=== PATIENT | male | born 1960 | race Caucasian/White ===

== ENCOUNTER 2018-01-23 01:06 | Emergency (ER) | END 2018-01-23 10:52 | disposition home or self-care (01) ==

== ENCOUNTER 2018-06-09 10:38 | Emergency (ER) | END 2018-06-09 14:28 | disposition home or self-care (01) ==

== ENCOUNTER 2018-06-11 17:32 | Emergency (ER) | END 2018-06-11 19:16 | disposition left against medical advice (07) ==

== ENCOUNTER 2018-08-09 02:57 | Inpatient (IN) | END 2018-08-13 21:30 | disposition home or self-care (01) | DRG 871 ==

== ENCOUNTER 2018-09-25 21:59 | Emergency (ER) | END 2018-09-25 22:16 | disposition left against medical advice (07) ==

== ENCOUNTER 2019-02-15 05:06 | Emergency (ER) | payer OTHER ==
[~2019-02-15] VITALS: Ht 175.3 cm; Wt 100.0 kg
[~2019-02-15 05:06] MED LIST: ALBU8.5H8 INH; CARB1TAB34 PO; DOXY100T2 PO; MUPI22OI2 TOP; PANT40TA4 PO; PRIM250T37 PO; RIVA15TA PO; TIOT18CA INHALATION
[2019-02-15 05:13] VITALS: Ht 175.3 cm; Wt 100.0 kg
--- NOTE | 2019-02-15 06:25 | ERD ---
ER Documentation Chief Complaint Chief Complaint LEONELA, from home,suprapubic cath came out, cath site bleeding HPI This is a 58-year-old male who is here because he pulled out his suprapubic catheter accident about an hour and 1/2-2 hours prior to arrival. Patient has a catheter in place because of a spasmodic bladder with urinary retention due to Parkinson's disease. He has no pain and no active bleeding ROS All systems reviewed and are negative except as per history of present illness. Medications Home Meds Active Scripts Carbidopa/Levodopa (Carbidopa-Levodopa 25-100 Tab) 1 Each Tablet, 2 TAB PO 0900,1200,1700 for 30 Days, TAB Prov:BLAIR MCGRATH NP 08/13/18 Albuterol Sulfate* (Proair HFA*) 8.5 Gm Hfa.aer.ad, 2 PUFF INH Q6 for sob, #1 INHALER Prov:BLAIR MCGRATH NP 08/13/18 Tiotropium [place]* (Spiriva*) 18 Mcg Cap.w.dev, 1 CAP INHALATION DAILY, #30 CAP Prov:BLAIR MCGRATH NP 08/13/18 Mupirocin* (Bactroban*) 2% -22 Gram Oint...g., 1 APPLIC TOP BID for 14 Days, #1 UNIT Prov:BLAIR MCGRATH NP 08/13/18 Doxycycline* (Vibramycin*) 100 Mg Tab, 100 MG PO BID for 14 Days, #28 TAB Prov:BLAIR MCGRATH NP 08/13/18 Reported Medications Primidone* (Mysoline*) 250 Mg Tablet, 250 MG PO BID, TAB 08/09/18 Rivaroxaban* (Xarelto*) 15 Mg Tablet, 15 MG PO WITH BREAKFAST DINNE, TAB 08/09/18 Pantoprazole* (Pantoprazole*) 40 Mg Tablet.dr, 40 MG PO AC BREAKFAST, TAB 08/09/18 Allergies Allergies: Coded Allergies: tramadol (Unverified Allergy, Unknown, 08/09/18) PMhx/Soc History of Surgery: Yes (CHOLYCYSTECTOMY, SUPRAPUBIC CATHETER INSERTION, L ELBOW, L WRIST, L KNEE) Anesthesia Reaction: No Hx Neurological Disorder: Yes (Parkinson) Hx Respiratory Disorders: Yes (COPD) Hx Cardiac Disorders: No Hx Psychiatric Problems: No Hx Miscellaneous Medical Probl: Yes (COPD,sleep apnea,Parkinson's disease) Hx Alcohol Use: No Hx Substance Use: No Hx Tobacco Use: No Smoking Status: Never smoker FmHx Family History: No coronary disease Physical Exam Vitals Vital Signs Date Temp Pulse Resp B/P (MAP) Pulse Ox O2 O2 Flow FiO2 Time Delivery Rate 02/15/19 98.0 64 19 135/87 96 Room Air 05:16 (103) 02/15/19 98.0 73 18 155/90 96 05:13 (111) Physical Exam Const: Well-developed, well-nourished Head: Atraumatic, normocephalic Eyes: Normal Conjunctiva, PERRLA, EOMI, normal sclera, no nystagmus ENT: Normal External Ears, Nose and Mouth, moist mucus membranes. Neck: Full range of motion. No meningismus, no lymphadenopathy. Resp: Clear to auscultation bilaterally, no wheezing, rhonchi, rales Cardio: Regular rate and rhythm, no murmurs, S1 S2 present Abd: Soft, non tender x 4, suprapubic stoma clean dry and intact non distended. Normal bowel sounds, no guarding or rebound, no pulsitile abdominal masses or bruits Skin: No petechiae or rashes, no ecchymosis , no maculopapular rash Back: No midline or flank tenderness Ext: No cyanosis, or edema, FROM x 4, normal inspection, neurovascularly intact x 4 Neur: Awake and alert, STR 5/5 x 4, sensation intact x 4, no focal findings, cerebellum intact Psych: Normal Mood and Affect Result Diagram: 02/15/1944 02/15/1944 Results 24 hrs Laboratory Tests Test 02/15/19 05:44 White Blood Count 6.0 10^3/ul Red Blood Count 4.91 10^6/ul Hemoglobin 14.5 g/dl Hematocrit 42.8 % Mean Corpuscular Volume 87.2 fl Mean Corpuscular Hemoglobin 29.5 pg Mean Corpuscular Hemoglobin Concent 33.9 g/dl Red Cell Distribution Width 13.1 % Platelet Count 281 10^3/UL Mean Platelet Volume 9.8 fl Immature Granulocytes % 0.300 % Neutrophils % 49.5 % Lymphocytes % 34.3 % Monocytes % 6.2 % Eosinophils % 9.2 % Basophils % 0.5 % Nucleated Red Blood Cells % 0.0 /100WBC Immature Granulocytes # 0.020 10^3/ul Neutrophils # 3.0 10^3/ul Lymphocytes # 2.1 10^3/ul Monocytes # 0.4 10^3/ul Eosinophils # 0.6 10^3/ul Basophils # 0.0 10^3/ul Nucleated Red Blood Cells # 0.0 10^3/ul Prothrombin Time 19.0 Sec Prothrombin Time Ratio 1.5 INR International Normalized Ratio 1.58 Sodium Level 139 mmol/L Potassium Level 4.0 mmol/L Chloride Level 108 mmol/L Carbon Dioxide Level 23 mmol/L Anion Gap 8 Blood Urea Nitrogen 16 mg/dl Creatinine 0.75 mg/dl Est Glomerular Filtrat Rate mL/min > 60 mL/min Glucose Level 120 mg/dl Calcium Level 9.2 mg/dl Procedures/MDM Dr. Rohan Cannon of urology came in to see the patient at 730 and replaced the suprapubic catheter Patient be discharged home Departure Diagnosis: Primary Impression: Complication of catheter Encounter type: initial encounter Qualified Codes: T85.9XXA - Unspecified complication of internal prosthetic device, implant and graft, initial encounter Condition: Stable KLARISSA SIMS DO Feb 15, 2019 06:25
[2019-02-15 07:59] VITALS: BP 128/78; PULSE 66; RESP 20
--- NOTE | 2019-02-15 12:59 | OPR ---
Date/Time of Note Date/Time of Note DATE: 02/15/19 TIME: 12:53 Operative Report Procedure Date: Feb 15, 2019 Preoperative Diagnosis Dislodged suprapubic tube Postoperative Diagnosis same Operation/Procedure Performed insertion of suprapubic tube Surgeon see signature line Design Chief none Anesthesia Type: other (no anesthesia) Estimated Blood Loss: none Transfusion none Specimen none Grafts/Implants none Complications none Pt Condition Post Procedure: stable Disposition: home Indications dislodged suprapubic tube ,urinary retention Procedure Description The patient was seen in the emergency room and that was after he pulled out his suprapubic tube about 3-4 hours earlier. He states that he has had the suprapubic tube for about 2 years. The suprapubic area was then prepped and draped in the usual sterile manner. Lubricating jelly was injected into the tract of the previous suprapubic tube. I used a 14 [place] catheter and with some manipulation I was able to push it through the all the tract into the bladder. The balloon was inflated with 10 mL of sterile water and the catheter connected to a leg bag. And the patient was discharged from the emergency room. He will follow-up with his primary care physician and the urologist contracted with his medical group. AIXA CARPIO MD Feb 15, 2019 12:59
== END 2019-02-15 11:56 | disposition home or self-care (01) ==
LOC: E/R 05:06
DX: T83.098A Other mechanical complication of other urinary catheter, initial encounter (principal); J44.9 Chronic obstructive pulmonary disease, unspecified; G20 Parkinson's disease; Y73.2 Prosthetic and other implants, materials and accessory gastroenterology and urology devices associated with adverse incidents
CPT/HCPCS: 36415; 51702; 80048; 85025; 85610; Z7502

== ENCOUNTER 2019-04-05 19:11 | Inpatient (IN) | payer OTHER ==
[~2019-04-05] VITALS: Ht 175.3 cm; Wt 102.4 kg
[2019-04-05] MEDS ORDERED: ALBUTEROL 0.5% (NEB) 2.5 MG/0.5 ML AMP INH STA (19:20)
[2019-04-05] MEDS ORDERED: METHYLPREDNISOLONE 125 MG INJ IV STA (19:20)
--- NOTE | 2019-04-05 23:41 | ERD ---
ER Documentation Chief Complaint Chief Complaint SOB w/ wheezes bilat upper lobes, ra sats on scene 92%, copd, HHN per ems HPI This is a 58-year-old male with a history of Parkinson's disease as well as COPD who stated that is having a COPD exacerbation. He said he was getting short of breath this afternoon gradually got worse to the point where he had to call EMS. Patient sats were in the 80s on arrival. The patient has a breathing treatment in route which helped bring his O2 sats up to 92%. Patient denied any chest pain but he has had a cough with occasional productive sputum but no fever. ROS All systems reviewed and are negative except as per history of present illness. Medications Home Meds Active Scripts Carbidopa/Levodopa (Carbidopa-Levodopa 25-100 Tab) 1 Each Tablet, 2 TAB PO 0900,1200,1700 for 30 Days, TAB Prov:BLAIR MCGRATH NP 08/13/18 Albuterol Sulfate* (Proair HFA*) 8.5 Gm Hfa.aer.ad, 2 PUFF INH Q6 for sob, #1 INHALER Prov:BLAIR MCGRATH NP 08/13/18 Tiotropium [place]* (Spiriva*) 18 Mcg Cap.w.dev, 1 CAP INHALATION DAILY, #30 CAP Prov:BLAIR MCGRATH NP 08/13/18 Mupirocin* (Bactroban*) 2% -22 Gram Oint...g., 1 APPLIC TOP BID for 14 Days, #1 UNIT Prov:BLAIR MCGRATH NP 08/13/18 Doxycycline* (Vibramycin*) 100 Mg Tab, 100 MG PO BID for 14 Days, #28 TAB Prov:BLAIR MCGRATH NP 08/13/18 Reported Medications Primidone* (Mysoline*) 250 Mg Tablet, 250 MG PO BID, TAB 08/09/18 Rivaroxaban* (Xarelto*) 15 Mg Tablet, 15 MG PO WITH BREAKFAST DINNE, TAB 08/09/18 Pantoprazole* (Pantoprazole*) 40 Mg Tablet.dr, 40 MG PO AC BREAKFAST, TAB 08/09/18 Allergies Allergies: Coded Allergies: tramadol (Unverified Allergy, Unknown, 08/09/18) PMhx/Soc History of Surgery: Yes (CHOLYCYSTECTOMY, SUPRAPUBIC CATHETER INSERTION, L E LBOW, L WRIST, L KNEE) Anesthesia Reaction: No Hx Neurological Disorder: Yes (Parkinson) Hx Respiratory Disorders: Yes (COPD) Hx Cardiac Disorders: No Hx Psychiatric Problems: No Hx Miscellaneous Medical Probl: Yes (COPD,sleep apnea,Parkinson's disease) Hx Alcohol Use: No Hx Substance Use: No Hx Tobacco Use: No Smoking Status: Never smoker FmHx Family History: No coronary disease Physical Exam Vitals Vital Signs Date Temp Pulse Resp B/P (MAP) Pulse Ox O2 O2 Flow FiO2 Time Delivery Rate 04/05/19 105 19 137/83 98 Nasal 4.0 21:57 (101) Cannula 04/05/19 110 23 114/60 96 Nasal 3.0 20:40 (78) Cannula 04/05/19 97 2.0 20:10 04/05/19 106 22 96 Nasal 2.0 19:48 Cannula 04/05/19 Nasal 3 19:24 Cannula 04/05/19 98.8 116 26 150/90 98 19:13 (110) Physical Exam Const: Well-developed, well-nourished Head: Atraumatic, normocephalic Eyes: Normal Conjunctiva, PERRLA, EOMI, normal sclera, no nystagmus ENT: Normal External Ears, Nose and Mouth, moist mucus membranes. Neck: Full range of motion. No meningismus, no lymphadenopathy. Resp: [Lateral diffuse wheezes with distant breath sounds with increased work of breathing Cardio: Regular rate and rhythm, no murmurs, S1 S2 present Abd: Soft, non tender x 4, non distended. Normal bowel sounds, no guarding or rebound, no pulsitile abdominal masses or bruits Skin: No petechiae or rashes, no ecchymosis , no maculopapular rash Back: No midline or flank tenderness Ext: No cyanosis, or edema, FROM x 4, normal inspection, neurovascularly intact x 4 Neur: Awake and alert, STR 5/5 x 4, sensation intact x 4, no focal findings, cerebellum intact Psych: Normal Mood and Affect Result Diagram: 04/05/19191204/05/191912 Results 24 hrs Laboratory Tests Test 04/05/19 19:13 White Blood Count 10.3 10^3/ul Red Blood Count 5.19 10^6/ul Hemoglobin 16.2 g/dl Hematocrit 46.1 % Mean Corpuscular Volume 88.8 fl Mean Corpuscular Hemoglobin 31.2 pg Mean Corpuscular Hemoglobin Concent 35.1 g/dl Red Cell Distribution Width 12.9 % Platelet Count 308 10^3/UL Mean Platelet Volume 10.0 fl Immature Granulocytes % 0.300 % Neutrophils % 49.7 % Lymphocytes % 41.1 % Monocytes % 4.9 % Eosinophils % 3.5 % Basophils % 0.5 % Nucleated Red Blood Cells % 0.0 /100WBC Immature Granulocytes # 0.030 10^3/ul Neutrophils # 5.1 10^3/ul Lymphocytes # 4.2 10^3/ul Monocytes # 0.5 10^3/ul Eosinophils # 0.4 10^3/ul Basophils # 0.1 10^3/ul Nucleated Red Blood Cells # 0.0 10^3/ul Sodium Level 141 mmol/L Potassium Level 3.9 mmol/L Chloride Level 106 mmol/L Carbon Dioxide Level 23 mmol/L Anion Gap 12 Blood Urea Nitrogen 17 mg/dl Creatinine 1.03 mg/dl Est Glomerular Filtrat Rate mL/min > 60 mL/min Glucose Level 120 mg/dl Calcium Level 9.2 mg/dl Total Bilirubin 0.3 mg/dl Direct Bilirubin 0.00 mg/dl Indirect Bilirubin 0.3 mg/dl Aspartate Amino Transf (AST/SGOT) 56 IU/L Alanine Aminotransferase (ALT/SGPT) 59 IU/L Alkaline Phosphatase 96 IU/L Troponin I < 0.012 ng/ml Total Protein 8.5 g/dl Albumin 4.5 g/dl Globulin 4.00 g/dl Albumin/Globulin Ratio 1.12 Current Medications Medications Dose Sig/Valeria Start Time Status Last (Trade) Ordered Route PRN Stop Time Admin Dose Reason Admin Albuterol 10 mg ONCE STAT 04/05/19 DC 04/05/19 (Proventil INH 19:20 04/05/19 19:47 0.5% (Neb)) 19:22 125 mg ONCE STAT 04/05/19 DC 04/05/19 Methylprednis IV 19:20 04/05/19 19:28 olone Sodium 19:22 Succinate (Solu-Medrol) Procedures/[place] [id number] Radiology Main Line: [phone] DIAGNOSTIC IMAGING REPORT Patient: VAUGHN QUESADA : 1960 Age: 58 Sex: M MR #: [id number] DOS: 04/05/191919 Ordering MD: KLARISSA SIMS DO Location: E/R Room/Bed: PROCEDURE: XR Chest. CLINICAL INDICATION: SOB TECHNIQUE: Single frontal view of the chest COMPARISON: 08/12/2018 FINDINGS: Mild pulmonary vascular congestion. No focal consolidation. The heart and mediastinum are within normal limits. There is no pleural effusion or pneumothorax. Bones and soft tissues are unremarkable. IMPRESSION: Mild pulmonary vascular congestion. Otherwise, no acute cardiac or pulmonary findings. RPTAT:HCLE sangita Taveras, Physician Date Time Electronically viewed and signed by sangita Taveras Physician on 04/05/2019 20:05 cE/ CC: KLARISSA SIMS DO [id number] After breathing treatments for 1 hour and steroids. Patient is having a lot of coughing and coughing of yellow sputum. After several hours of observation his sats are still in the low 90s on oxygen, he saying that he still not at baseline and feels like he needs to be admitted Departure Diagnosis: Primary Impression: COPD exacerbation Condition: Stable KLARISSA SIMS DO Apr 05, 2019 23:41
[2019-04-06] VITALS (12 sets, daily range): BP systolic 117–144; BP diastolic 61–81; PULSE 81–90; RESP 16–22; Ht 175.3 cm; Wt 102.4 kg
[2019-04-06] MEDS ORDERED: AL HYDROX/MG HYDROX/SIMETH 30 ML CUP PO ONE (01:30)
[2019-04-06] MEDS ORDERED: HYDROCODONE/APAP (5/325) TAB PO PRN (02:00)
[2019-04-06] MEDS ORDERED: ONDANSETRON 4 MG INJ IV PRN ×2 (02:00)
[2019-04-06] MEDS ORDERED: morphine 2 MG INJ IV PRN (02:00)
[2019-04-06] MEDS ORDERED: DOCUSATE SODIUM 100 MG CAP PO PRN (02:00)
[2019-04-06] MEDS ORDERED: ACETAMINOPHEN 325 MG TAB PO PRN ×2 (02:00)
[2019-04-06] MEDS ORDERED: NACL 0.9% 3 ML SYG IV SCH (02:00)
[2019-04-06] MEDS ORDERED: LIDOCAINE 2% VISC 15 ML CUP PO ONE (02:30)
--- NOTE | 2019-04-06 04:47 | HP ---
Date/Time of Note Date/Time of Note DATE: 04/06/19 TIME: 04:47 Assessment/Plan VTE Prophylaxis SCD applied (from Nsg): No SCD contraindicated: other Pharmacological prophylaxis: rivaroxaban Lines/Catheters IV Catheter Type (from Nrsg): Saline Lock Urinary Cath still in place: No (SUPRA PUBIC CATH) Assessment/Plan Hospital Course Assessment and plan: 58-year-old male with past medical history of Parkinson's disease, neurogenic bladder with suprapubic catheter in place, DVT on Xarelto, prior UTI, prior pneumonia, COPD who presents with shortness of breath secondary to COPD exacerbation 1. COPD exacerbation: Patient again presents with shortness of breath -Add breathing treatments every 4 hours [id number], IV steroids Solu- Medrol, and low-dose IV antibiotics -Continue supplementation oxygen as needed, follow-up TSH, A1c, lipid panel -If symptoms worsen consider pulmonary consult, obtain PT consult for now 2. History of Parkinson's disease: Continue current Sinemet medications, monitor 3. History of neurogenic bladder: Again patient has a history of suprapubic catheter in place -Monitor for now 4. History of prior DVT: Continue Xarelto Result Diagram: 04/05/19191204/05/191912 Results 24hrs Laboratory Tests Test 04/05/19 19:13 White Blood Count 10.3 # Red Blood Count 5.19 Hemoglobin 16.2 Hematocrit 46.1 Mean Corpuscular Volume 88.8 Mean Corpuscular Hemoglobin 31.2 Mean Corpuscular Hemoglobin Concent 35.1 Red Cell Distribution Width 12.9 Platelet Count 308 Mean Platelet Volume 10.0 Immature Granulocytes % 0.300 Neutrophils % 49.7 Lymphocytes % 41.1 Monocytes % 4.9 Eosinophils % 3.5 Basophils % 0.5 Nucleated Red Blood Cells % 0.0 Immature Granulocytes # 0.030 Neutrophils # 5.1 Lymphocytes # 4.2 H Monocytes # 0.5 Eosinophils # 0.4 Basophils # 0.1 Nucleated Red Blood Cells # 0.0 Sodium Level 141 Potassium Level 3.9 Chloride Level 106 Carbon Dioxide Level 23 Anion Gap 12 Blood Urea Nitrogen 17 Creatinine 1.03 Est Glomerular Filtrat Rate mL/min > 60 Glucose Level 120 Calcium Level 9.2 Total Bilirubin 0.3 Direct Bilirubin 0.00 Indirect Bilirubin 0.3 Aspartate Amino Transf (AST/SGOT) 56 H Alanine Aminotransferase (ALT/SGPT) 59 Alkaline Phosphatase 96 Troponin I < 0.012 B-Type Natriuretic Peptide 29 Total Protein 8.5 H Albumin 4.5 Globulin 4.00 H Albumin/Globulin Ratio 1.12 HPI/ROS Admit Date/Time Admit Date/Time Apr 05, 2019 at 23:42 Hx of Present Illness 58-year-old male with past medical history of Parkinson's disease, neurogenic bladder with suprapubic catheter in place, DVT on Xarelto, prior UTI, prior pneumonia, COPD who presents with shortness of breath. Patient stated he was getting short of breath yesterday afternoon which gradually got worse to the point where EMS was called. Upon arrival they found patient's sats in the 80s. Patient received 1 breathing treatment in route which helped bring his O2 sats up to 92%. Denies any upper or lower GI bleeding, fever chills, nausea vomiting, chest pain but he has had a cough with occasional productive sputum. His chest ray on admission today showed mild pulmonary vascular congestion. PMH/Family/Social Past Medical History Medications Current Medications Ondansetron HCl (Zofran Inj) 4 mg ER BRIDGE PRN IV NAUSEA/VOMITING; Start 04/06/19 at 00:00; Stop 04/06/19 at 23:59 Acetaminophen (Tylenol Tab) 650 mg ER BRIDGE PRN PO .MILD PAIN 1-3 OR TEMP; Start 04/06/19 at 00:00; Stop 04/06/19 at 23:59 Carbidopa/Levodopa (Sinemet (25/ 100)) 2 tab 0900,1200,1700 PO ; Start 04/06/19 at 09:00 Mupirocin (Bactroban) 1 applic BID TOP ; Start 04/06/19 at 09:00 Pantoprazole (Protonix Tab) 40 mg AC BREAKFAST PO ; Start 04/06/19 at 07:00 Primidone (Mysoline) 250 mg BID PO ; Start 04/06/19 at 09:00 Rivaroxaban (Xarelto) 15 mg WITH BREAKFAST DINNE PO ; Start 04/06/19 at 07:55 IV Flush (NS 3 ml) 3 ml PER PROTOCOL IV ; Start 04/06/19 at 02:00 Ondansetron HCl (Zofran Inj) 4 mg Q6H PRN IV NAUSEA/VOMITING; Start 04/06/19 at 02:00 Acetaminophen (Tylenol Tab) 650 mg Q6H PRN PO .PAIN 1-3 OR TEMP; Start 04/06/19 at 02:00 Acetaminophen/ Hydrocodone Bitart ([place] (5/325)) 1 tab Q6H PRN PO .MOD PAIN 4- 6; Start 04/06/19 at 02:00 Morphine Sulfate (morphine) 2 mg Q4H PRN IV .SEVERE PAIN 7-10; Start 04/06/19 at 02:00 Docusate Sodium (Colace) 100 mg Q12H PRN PO .CONSTIPATION; Start 04/06/19 at 02:00 Magnesium Hydroxide (Milk Of Mag) 30 ml DAILY PRN PO .CONSTIPATION; Start 04/06/19 at 02:00 Heparin Sodium (Porcine) (Heparin (5000 Units/1ml)) 5,000 unit Q12 SC ; Start 04/06/19 at 09:00 Methylprednisolone Sodium Succinate (Solu-Medrol) 80 mg Q6 IV ; Start 04/06/19 at 06:00 Coded Allergies: baclofen (Verified Allergy, Severe, RASH BIG BUMP, 04/06/19) tramadol (Unverified Allergy, Unknown, 08/09/18) Past Surgical History Past Surgical Hx: other (CHOLYCYSTECTOMY, SUPRAPUBIC CATHETER INSERTION, L ELBOW, L WRIST, L KNEE) Family History Significant Family History: no pertinent family hx Social History Alcohol Use: none Smoking Status: Former smoker Drug Use: none Exam/Review of Systems Vital Signs Vitals Vital Signs Date Temp Pulse Resp B/P (MAP) Pulse Ox O2 O2 Flow FiO2 Time Delivery Rate 04/06/19 Nasal 4.0 03:30 Cannula 04/06/19 97.8 81 22 131/81 93 03:14 (98) Intake and Output 04/05/19 04/05/19 04/06/19 1515:00 23:00 07:00 IntakeIntake Total 60 ml BalanceBalance 60 ml Exam Exam Gen: Lying in bed, NAD Head: Atraumatic. Eyes: Normal Conjunctiva. ENT: Normal External Ears, Nose and Mouth. Neck: Full range of motion. No meningismus. Resp: Lateral diffuse wheezes with distant breath sounds with increased work of breathing Cardio: Regular rate and rhythm. Abd: Soft, nondistended, normal bowel sounds, non tender. Ext: No lower extremity edema bilaterally Neuro: No focal deficits RAHI,ASHLEY S. Apr 06, 2019 04:47
[2019-04-06] MEDS ORDERED: LEVOFLOXACIN 750MG/D5W (PMX) 150 ML IVPB SCH (05:30)
[2019-04-06] MEDS: METHYLPREDNISOLONE 125 MG INJ IV SCH ×3 (05:41→17:11)
[2019-04-06] MEDS: PRIMIDONE 250 MG TAB PO SCH ×2 (08:08→20:05)
[2019-04-06] MEDS: PANTOPRAZOLE (EC) 40 MG TAB PO SCH (08:08)
[2019-04-06] MEDS: CARBIDOPA/LEVODOPA (25/100) TAB PO SCH ×3 (08:08→17:11)
[2019-04-06] MEDS: RIVAROXABAN 15 MG TABLET PO SCH ×2 (08:08→17:11)
[2019-04-06] MEDS: MUPIROCIN 2% 22 GM OINT TOP SCH ×2 (08:09→20:06)
[2019-04-06] MEDS ORDERED: HEPARIN 5,000 UNIT/1 ML VIAL SC SCH (09:00)
--- NOTE | 2019-04-06 18:37 | PN ---
Date/Time of Note Date/Time of Note DATE: 04/06/19 TIME: 18:35 Assessment/Plan VTE Prophylaxis Risk score (from Nsg)>0 risk: 5 SCD applied (from Ns): No SCD contraindicated: low risk/ambulating Pharmacological prophylaxis: LMWH Lines/Catheters IV Catheter Type (from Nrs): Saline Lock Urinary Cath still in place: No (SUPRA PUBIC CATHETER) Assessment/Plan Hospital Course Hospitalist coverage Assessment and plan 1. Dyspnea likely acute COPD exacerbation, stable continue steroids/aerosols. 2. Viral bronchitis? 3. Past tobacco 4. Chronic COPD consider outpatient PFTs 5. Chronic parkinsonism 6. Chronic neurogenic bladder 7. History of DVT 8. Acute hypoxic respiratory failure. Chronic respiratory failure? 9. Obesity Subjective: Dyspnea remains. No fever. Objective: Vital signs stable Physical exam No pallor adenopathy JVD Regular no murmur gallop Diminished Bowel sounds present nontender nausea no RRG overweight No edema/Homans Result Diagram: 04/05/19191204/05/191912 Results 24hrs Laboratory Tests Test 04/05/19 19:13 04/06/19 13:40 White Blood Count 10.3 # Red Blood Count 5.19 Hemoglobin 16.2 Hematocrit 46.1 Mean Corpuscular Volume 88.8 Mean Corpuscular Hemoglobin 31.2 Mean Corpuscular Hemoglobin Concent 35.1 Red Cell Distribution Width 12.9 Platelet Count 308 Mean Platelet Volume 10.0 Immature Granulocytes % 0.300 Neutrophils % 49.7 Lymphocytes % 41.1 Monocytes % 4.9 Eosinophils % 3.5 Basophils % 0.5 Nucleated Red Blood Cells % 0.0 Immature Granulocytes # 0.030 Neutrophils # 5.1 Lymphocytes # 4.2 H Monocytes # 0.5 Eosinophils # 0.4 Basophils # 0.1 Nucleated Red Blood Cells # 0.0 Sodium Level 141 Potassium Level 3.9 Chloride Level 106 Carbon Dioxide Level 23 Anion Gap 12 Blood Urea Nitrogen 17 Creatinine 1.03 Est Glomerular Filtrat Rate mL/min > 60 Glucose Level 120 Calcium Level 9.2 Total Bilirubin 0.3 Direct Bilirubin 0.00 Indirect Bilirubin 0.3 Aspartate Amino Transf (AST/SGOT) 56 H Alanine Aminotransferase (ALT/SGPT) 59 Alkaline Phosphatase 96 Troponin I < 0.012 B-Type Natriuretic Peptide 29 Total Protein 8.5 H Albumin 4.5 Globulin 4.00 H Albumin/Globulin Ratio 1.12 Urine Color YELLOW Urine Clarity CLEAR Urine pH 8.0 Urine Specific [place] 1.033 H Urine Ketones TRACE A Urine Nitrite NEGATIVE Urine Bilirubin NEGATIVE Urine Urobilinogen NEGATIVE Urine Leukocyte Esterase TRACE A Urine Microscopic RBC 2 Urine Microscopic WBC 10 H Urine Hemoglobin NEGATIVE Urine Glucose NEGATIVE Urine Total Protein NEGATIVE Exam/Review of Systems Exam Vitals Vital Signs Date Temp Pulse Resp B/P (MAP) Pulse Ox O2 O2 Flow FiO2 Time Delivery Rate 04/06/19 82 16:03 04/06/19 98.0 16 119/65 96 15:24 (83) 04/06/19 Nasal 4.0 08:00 Cannula Intake and Output 04/05/19 04/05/19 04/06/19 1515:00 23:00 07:00 IntakeIntake Total 210 ml OutputOutput Total 100 ml BalanceBalance 110 ml Results Results 24hrs Laboratory Tests Test 04/05/19 19:13 04/06/19 13:40 White Blood Count 10.3 # Red Blood Count 5.19 Hemoglobin 16.2 Hematocrit 46.1 Mean Corpuscular Volume 88.8 Mean Corpuscular Hemoglobin 31.2 Mean Corpuscular Hemoglobin Concent 35.1 Red Cell Distribution Width 12.9 Platelet Count 308 Mean Platelet Volume 10.0 Immature Granulocytes % 0.300 Neutrophils % 49.7 Lymphocytes % 41.1 Monocytes % 4.9 Eosinophils % 3.5 Basophils % 0.5 Nucleated Red Blood Cells % 0.0 Immature Granulocytes # 0.030 Neutrophils # 5.1 Lymphocytes # 4.2 H Monocytes # 0.5 Eosinophils # 0.4 Basophils # 0.1 Nucleated Red Blood Cells # 0.0 Sodium Level 141 Potassium Level 3.9 Chloride Level 106 Carbon Dioxide Level 23 Anion Gap 12 Blood Urea Nitrogen 17 Creatinine 1.03 Est Glomerular Filtrat Rate mL/min > 60 Glucose Level 120 Calcium Level 9.2 Total Bilirubin 0.3 Direct Bilirubin 0.00 Indirect Bilirubin 0.3 Aspartate Amino Transf (AST/SGOT) 56 H Alanine Aminotransferase (ALT/SGPT) 59 Alkaline Phosphatase 96 Troponin I < 0.012 B-Type Natriuretic Peptide 29 Total Protein 8.5 H Albumin 4.5 Globulin 4.00 H Albumin/Globulin Ratio 1.12 Urine Color YELLOW Urine Clarity CLEAR Urine pH 8.0 Urine Specific [place] 1.033 H Urine Ketones TRACE A Urine Nitrite NEGATIVE Urine Bilirubin NEGATIVE Urine Urobilinogen NEGATIVE Urine Leukocyte Esterase TRACE A Urine Microscopic RBC 2 Urine Microscopic WBC 10 H Urine Hemoglobin NEGATIVE Urine Glucose NEGATIVE Urine Total Protein NEGATIVE Medications Medication Current Medications Carbidopa/Levodopa (Sinemet (25/ 100)) 2 tab 0900,1200,1700 PO Last administered on 04/06/19at 17:11; Admin Dose 2 TAB; Start 04/06/19 at 09:00 Mupirocin (Bactroban) 1 applic BID TOP Last administered on 04/06/19at 08:09; Admin Dose 1 APPLIC; Start 04/06/19 at 09:00 Pantoprazole (Protonix Tab) 40 mg AC BREAKFAST PO Last administered on 04/06/19 08:08; Admin Dose 40 MG; Start 04/06/19 at 07:00 Primidone (Mysoline) 250 mg BID PO Last administered on 04/06/19 08:08; Admin Dose 250 MG; Start 04/06/19 at 09:00 Rivaroxaban (Xarelto) 15 mg WITH BREAKFAST DINNE PO Last administered on 04/06/19at 17:11; Admin Dose 15 MG; Start 04/06/19 at 07:55 IV Flush (NS 3 ml) 3 ml PER PROTOCOL IV ; Start 04/06/19 at 02:00 Ondansetron HCl (Zofran Inj) 4 mg Q6H PRN IV NAUSEA/VOMITING; Start 04/06/19 at 02:00 Acetaminophen (Tylenol Tab) 650 mg Q6H PRN PO .PAIN 1-3 OR TEMP; Start 04/06/19 at 02:00 Acetaminophen/ Hydrocodone Bitart ([place] (5/325)) 1 tab Q6H PRN PO .MOD PAIN 4- 6 Last administered on 04/06/19at 08:43; Admin Dose 1 TAB; Start 04/06/19 at 02:00 Morphine Sulfate (morphine) 2 mg Q4H PRN IV .SEVERE PAIN 7-10; Start 04/06/19 at 02:00 Docusate Sodium (Colace) 100 mg Q12H PRN PO .CONSTIPATION; Start 04/06/19 at 02:00 Magnesium Hydroxide (Milk Of Mag) 30 ml DAILY PRN PO .CONSTIPATION; Start 04/06/19 at 02:00 Methylprednisolone Sodium Succinate (Solu-Medrol) 80 mg Q6 IV Last administered on 04/06/19at 17:11; Admin Dose 80 MG; Start 04/06/19 at 06:00 Levofloxacin/ Dextrose 150 ml @ 100 mls/hr Q24H IVPB Last administered on 04/06/19at 05:41; Admin Dose 100 MLS/HR; Start 04/06/19 at 05:30 KELSEY COSTELLO MD Apr 06, 2019 18:37
[2019-04-06] MEDS ORDERED: MAGNESIUM SULFATE 2 GM/50 ML 50 ML IVPB ONE (19:00)
[2019-04-06] MEDS ORDERED: GUAIFENESIN/DM 5ML CUP PO PRN (19:00)
[2019-04-06] MEDS ORDERED: ALBUTEROL/IPRATROPIUM (NEB) 3 ML AMP HHN PRN (19:00)
[2019-04-06] MEDS: ALBUTEROL/IPRATROPIUM (NEB) 3 ML AMP HHN SCH ×2 (20:00→20:19)
[2019-04-06] MEDS ORDERED: METHYLPREDNISOLONE 4 MG TAB PO SCH (20:30)
[2019-04-07] VITALS (9 sets, daily range): BP systolic 108–117; BP diastolic 56–74; PULSE 66–100; RESP 16–20
[2019-04-07] MEDS: MAGNESIUM HYDROXIDE 30ML CUP PO PRN (00:53)
[2019-04-07] MEDS: PANTOPRAZOLE (EC) 40 MG TAB PO SCH (07:25)
[2019-04-07] MEDS: ALBUTEROL/IPRATROPIUM (NEB) 3 ML AMP HHN SCH ×3 (07:59→20:34)
[2019-04-07] MEDS: METHYLPREDNISOLONE 4 MG TAB PO SCH ×2 (08:13→12:00)
[2019-04-07] MEDS: LOSARTAN 25 MG TAB PO SCH (08:13)
[2019-04-07] MEDS: MUPIROCIN 2% 22 GM OINT TOP SCH ×2 (08:14→22:57)
[2019-04-07] MEDS: PRIMIDONE 250 MG TAB PO SCH ×2 (08:14→21:34)
[2019-04-07] MEDS: AZITHROMYCIN 250 MG TAB PO SCH (08:14)
[2019-04-07] MEDS: RIVAROXABAN 15 MG TABLET PO SCH ×2 (08:14→18:13)
[2019-04-07] MEDS: CARBIDOPA/LEVODOPA (25/100) TAB PO SCH ×3 (08:14→18:03)
[2019-04-07] MEDS ORDERED: METHYLPREDNISOLONE (MEDROL) DOSE PACK PO SCH (09:00)
--- NOTE | 2019-04-07 14:18 | RADRPT ---
Echocardiogram Report Patient Name: VAUGHN QUESADAPatient ID: [id number] : 1960 (58y 6m)Study Date: 04/07/2019 7:16:56 AM Gender: MAccession #: [id number] Tech: Sky Manriquez RDCS Location: [id number] Ref.Physician: KELSEY COSTELLO Height(Cm): BSA: Weight(Kg): Quality: AdequateOrder Physician: KELSEY COSTELLO Account #: Procedures: Echocardiographic Report: Transthoracic echocardiogram with complete 2D, M-Mode, and doppler examination. Indications: Dyspnea. Measurements: 2D/M Mode Doppler Measurement Value Normal Range Measurement Value Normal Range LVIDd 2D 4.8 [ 4.2 - 5.8 ] cm AV Peak Joseph 1.3 [ 100.0 - 170.0 ] cm/sec LVIDs 2D 2.4 [ 2.5 - 4.0 ] cm AV Peak PG 7.0 [ 2.0 - 9.0 ] mmHg LVPWd 2D 1.1 [ 0.6 - 1.0 ] cm LVOT Peak Joseph 1.1 [ 70.0 - 110.0 ] cm/sec IVSd 2D 1.0 [ 0.6 - 1.0 ] cm LVOT Peak PG 5.0 [ 2.0 - 6.0 ] mmHg AoR Diam 2D 3.6 [ 2.6 - 3.4 ] cm MV E Peak Joseph 0.7 [ 60.0 - 130.0 ] cm/sec EDV 2D 110.0 [ 62.0 - 150.0 ] ml MV A Peak Joseph 1.1 [ 100.0 - 120.0 ] cm/sec ESV 2D 20.0 [ 21.0 - 61.0 ] ml MV E/A 0.7 [ 0.8 - 1.5 ] ratio EF 2D 81.8 [ 52.0 - 72.0 ] percent MV Decel Time 239 [ 104 - 258 ] msec LA Dimen 2D 3.1 [ 3.0 - 4.0 ] cm Lat E` Joseph 0.1 [ 10.0 - 15.0 ] cm/sec Lateral E/E` 8.6 [ 1.0 - 2.0 ] ratio MV E/A 0.7 [ 0.8 - 1.5 ] ratio Findings: Left Ventricle: Normal left ventricular systolic function. Normal left ventricular cavity size. Mild concentric left ventricular hypertrophy. Ejection fraction is visually estimated at 60-65 %. Tissue Doppler/Mitral Doppler indices are consistent with impaired relaxation (Stage I diastolic dysfunction). Right Ventricle: Normal right ventricular size. Normal right ventricular systolic function. Left Atrium: The left atrium is normal in size. Right Atrium: The right atrium is normal in size. Mitral Valve: Normal appearance and function of the mitral valve with trace physiologic regurgitation. Aortic Valve: Normal appearance of the aortic valve. No significant aortic stenosis or insufficiency. Tricuspid Valve: Normal appearance of the tricuspid valve. Unable to obtain RVSP due to minimal presence of tricuspid regurgitation. Pulmonic Valve: Normal pulmonic valve appearance. Pericardium: Normal pericardium with no significant pericardial effusion. Aorta: Normal aortic root. IVC: Normal size and normal respiratory collapse consistent with normal right atrial pressure. Conclusions: Normal left ventricular systolic function. Normal left ventricular cavity size. Mild concentric left ventricular hypertrophy. Ejection fraction is visually estimated at 60-65 %. Tissue Doppler/Mitral Doppler indices are consistent with impaired relaxation (Stage I diastolic dysfunction). Normal appearance and function of the mitral valve with trace physiologic regurgitation. Normal appearance of the tricuspid valve. Unable to obtain RVSP due to minimal presence of tricuspid regurgitation. Electronically Signed By: Richard Oliver 2019-04-07 14:18:39 PDT
--- NOTE | 2019-04-07 14:39 | PN ---
Date/Time of Note Date/Time of Note DATE: 04/07/19 TIME: 14:38 Assessment/Plan VTE Prophylaxis Risk score (from Nsg)>0 risk: 5 SCD applied (from Nsg): Yes Pharmacological prophylaxis: heparin Lines/Catheters IV Catheter Type (from Nrsg): Saline Lock Urinary Cath still in place: No (SUPRAPUBIC CATHETER) Assessment/Plan Hospital Course 58 yo male with Parksinsons dz, COPD presents with acute SOB - Continue bronchodilators, steroids for likely COPD exacerbatino - V/Q low probability, unlikely PE PD: - Sinemet Dc home tomorrow Result Diagram: 04/07/1972904/07/1930 Results 24hrs Laboratory Tests Test 04/07/19 07:30 White Blood Count 17.7 #H Red Blood Count 4.83 Hemoglobin 14.5 Hematocrit 43.4 Mean Corpuscular Volume 89.9 Mean Corpuscular Hemoglobin 30.0 Mean Corpuscular Hemoglobin Concent 33.4 Red Cell Distribution Width 13.4 Platelet Count 303 Mean Platelet Volume 10.3 Immature Granulocytes % 0.500 H Neutrophils % 89.5 H Lymphocytes % 5.5 L Monocytes % 4.4 Eosinophils % 0.0 Basophils % 0.1 Nucleated Red Blood Cells % 0.0 Immature Granulocytes # 0.080 H Neutrophils # 15.8 H Lymphocytes # 1.0 Monocytes # 0.8 Eosinophils # 0.0 Basophils # 0.0 Nucleated Red Blood Cells # 0.0 Prothrombin Time 16.6 H Prothrombin Time Ratio 1.3 INR International Normalized Ratio 1.33 Sodium Level 142 Potassium Level 4.5 Chloride Level 109 Carbon Dioxide Level 25 Anion Gap 8 Blood Urea Nitrogen 20 Creatinine 0.72 Est Glomerular Filtrat Rate mL/min > 60 Glucose Level 149 Hemoglobin A1c 6.1 H Calcium Level 9.2 Phosphorus Level 3.0 Magnesium Level 2.6 H Troponin I < 0.012 Triglycerides Level 87 Cholesterol Level 181 LDL Cholesterol, Calculated 130 HDL Cholesterol 34 Cholesterol/HDL Ratio 5.3 Thyroid Stimulating Hormone (TSH) 0.310 L Subjective 24 Hr Interval Summary Free Text/Dictation Breathing improving Nervous to go home still Exam/Review of Systems Exam Vitals Vital Signs Date Temp Pulse Resp B/P (MAP) Pulse Ox O2 O2 Flow FiO2 Time Delivery Rate 04/07/19 76 12:42 04/07/19 97.9 20 117/56 95 Nasal 11:12 (76) Cannula 04/07/19 3.0 08:00 04/07/19 27 02:39 Intake and Output 04/06/19 04/06/19 04/07/19 1515:00 23:00 07:00 IntakeIntake Total 670 ml 270 ml OutputOutput Total 600 ml 500 ml BalanceBalance 70 ml -230 ml Constitutional: alert, oriented, well developed Psych: no complaints, nl mood/affect Head: normocephalic, atraumatic Eyes: nl conjunctiva, EOMI, nl lids, nl sclera, PERRL ENMT: nl external ears & nose, nl lips & teeth, nl nasal mucosa & septum Neck: supple, non-tender Respiratory: clear to auscultation, normal air movement Cardiovascular: regular rate and rhythm, nl pulses Gastrointestinal: soft, nl liver, spleen, non-tender Musculoskeletal: nl extremities to inspection, nl gait and stance Extremities: normal pulses Neurological: [employer] ASSOCIATE II-XII intact, nl mental status, nl speech, nl strength Skin: nl turgor; No rash or lesions Lymph: nl lymph nodes Results Results 24hrs Laboratory Tests Test 04/07/19 07:30 White Blood Count 17.7 #H Red Blood Count 4.83 Hemoglobin 14.5 Hematocrit 43.4 Mean Corpuscular Volume 89.9 Mean Corpuscular Hemoglobin 30.0 Mean Corpuscular Hemoglobin Concent 33.4 Red Cell Distribution Width 13.4 Platelet Count 303 Mean Platelet Volume 10.3 Immature Granulocytes % 0.500 H Neutrophils % 89.5 H Lymphocytes % 5.5 L Monocytes % 4.4 Eosinophils % 0.0 Basophils % 0.1 Nucleated Red Blood Cells % 0.0 Immature Granulocytes # 0.080 H Neutrophils # 15.8 H Lymphocytes # 1.0 Monocytes # 0.8 Eosinophils # 0.0 Basophils # 0.0 Nucleated Red Blood Cells # 0.0 Prothrombin Time 16.6 H Prothrombin Time Ratio 1.3 INR International Normalized Ratio 1.33 Sodium Level 142 Potassium Level 4.5 Chloride Level 109 Carbon Dioxide Level 25 Anion Gap 8 Blood Urea Nitrogen 20 Creatinine 0.72 Est Glomerular Filtrat Rate mL/min > 60 Glucose Level 149 Hemoglobin A1c 6.1 H Calcium Level 9.2 Phosphorus Level 3.0 Magnesium Level 2.6 H Troponin I < 0.012 Triglycerides Level 87 Cholesterol Level 181 LDL Cholesterol, Calculated 130 HDL Cholesterol 34 Cholesterol/HDL Ratio 5.3 Thyroid Stimulating Hormone (TSH) 0.310 L Medications Medication Current Medications Carbidopa/Levodopa (Sinemet (25/ 100)) 2 tab 0900,1200,1700 PO Last administered on 04/07/19at 12:00; Admin Dose 2 TAB; Start 04/06/19 at 09:00 Mupirocin (Bactroban) 1 applic BID TOP Last administered on 04/07/19 08:14; Admin Dose 1 APPLIC; Start 04/06/19 at 09:00 Pantoprazole (Protonix Tab) 40 mg AC BREAKFAST PO Last administered on 04/07/19 07:25; Admin Dose 40 MG; Start 04/06/19 at 07:00 Primidone (Mysoline) 250 mg BID PO Last administered on 04/07/19 08:14; Admin Dose 250 MG; Start 04/06/19 at 09:00 Rivaroxaban (Xarelto) 15 mg WITH BREAKFAST DINNE PO Last administered on 04/07/19 08:14; Admin Dose 15 MG; Start 04/06/19 at 07:55 IV Flush (NS 3 ml) 3 ml PER PROTOCOL IV ; Start 04/06/19 at 02:00 Ondansetron HCl (Zofran Inj) 4 mg Q6H PRN IV NAUSEA/VOMITING; Start 04/06/19 at 02:00 Acetaminophen (Tylenol Tab) 650 mg Q6H PRN PO .PAIN 1-3 OR TEMP; Start 04/06/19 at 02:00 Acetaminophen/ Hydrocodone Bitart ([place] (5/325)) 1 tab Q6H PRN PO .MOD PAIN 4- 6 Last administered on 04/06/19at 08:43; Admin Dose 1 TAB; Start 04/06/19 at 02:00 Morphine Sulfate (morphine) 2 mg Q4H PRN IV .SEVERE PAIN 7-10; Start 04/06/19 at 02:00 Docusate Sodium (Colace) 100 mg Q12H PRN PO .CONSTIPATION; Start 04/06/19 at 02:00 Magnesium Hydroxide (Milk Of Mag) 30 ml DAILY PRN PO .CONSTIPATION Last administered on 04/07/19at 00:53; Admin Dose 30 ML; Start 04/06/19 at 02:00 Albuterol/ Ipratropium (Duoneb) 3 ml Q6HWA RESP THERAPY N Last administered on 04/07/19at 07:59; Admin Dose 3 ML; Start 04/06/19 at 19:00 Albuterol/ Ipratropium (Duoneb) 3 ml Q2H RESP THERAPY PRN HHN CONTROL WITHDRAWAL SYMPTOMS; Start 04/06/19 at 19:00 Azithromycin (Zithromax) 250 mg DAILY PO Last administered on 04/07/19at 08:14; Admin Dose 250 MG; Start 04/07/19 at 09:00 Guaifenesin/ Dextromethorphan (Robitussin Dm Liquid Cup) 10 ml Q4H PRN PO COUGH; Start 04/06/19 at 19:00 Methylprednisolone (Medrol Dose Pack) ay 1: 24 mg on day 1, administe... STD DOSE PACK PO ; Start 04/07/19 at 09:00 Losartan Potassium (Cozaar) 25 mg DAILY PO Last administered on 04/07/19at 08:13; Admin Dose 25 MG; Start 04/07/19 at 09:00 Methylprednisolone (Medrol) 4 mg AC BREAKFAST PO Last administered on 04/07/19at 08:13; Admin Dose 4 MG; Start 04/07/19 at 07:25; Stop 04/11/19 at 07:26 Methylprednisolone (Medrol) 4 mg PC LUNCH PO Last administered on 04/07/19at 12:00; Admin Dose 4 MG; Start 04/07/19 at 12:50; Stop 04/09/19 at 12:51 Methylprednisolone (Medrol) 4 mg PC DINNER PO ; Start 04/07/19 at 18:55; Stop 04/08/19 at 18:56 Methylprednisolone (Medrol) 8 mg HS PO ; Start 04/07/19 at 21:00; Stop 04/07/19 at 21:01 Methylprednisolone (Medrol) 4 mg HS PO ; Start 04/08/19 at 21:00; Stop 04/10/19 at 21:01 ZENIA SALDIVAR MD Apr 07, 2019 14:39
[2019-04-07] MEDS ORDERED: METHYLPREDNISOLONE 4 MG TAB PO SCH ×2 (18:55→21:00)
[2019-04-08 02:00] VITALS: BP 101/51; PULSE 67; RESP 17
[2019-04-08 07:45] VITALS: BP 111/61; PULSE 61; RESP 16
[2019-04-08] MEDS: RIVAROXABAN 15 MG TABLET PO SCH (08:50)
[2019-04-08] MEDS: METHYLPREDNISOLONE 4 MG TAB PO SCH ×2 (08:50→12:19)
[2019-04-08] MEDS: PRIMIDONE 250 MG TAB PO SCH (08:51)
[2019-04-08] MEDS: AZITHROMYCIN 250 MG TAB PO SCH (08:51)
[2019-04-08] MEDS: MAGNESIUM HYDROXIDE 30ML CUP PO PRN (08:51)
[2019-04-08] MEDS: PANTOPRAZOLE (EC) 40 MG TAB PO SCH (08:51)
[2019-04-08] MEDS: LOSARTAN 25 MG TAB PO SCH (08:52)
[2019-04-08] MEDS: CARBIDOPA/LEVODOPA (25/100) TAB PO SCH ×2 (08:57→12:19)
[2019-04-08] MEDS: MUPIROCIN 2% 22 GM OINT TOP SCH (09:00)
[2019-04-08] MEDS: ALBUTEROL/IPRATROPIUM (NEB) 3 ML AMP HHN SCH ×2 (09:59→13:11)
--- NOTE | 2019-04-08 11:41 | PDOCDIS ---
Discharge Instructions CONDITION [id number] Patient Condition: [id number] Good HOME CARE INSTRUCTIONS: [id number] Diet Instructions: [id number] Low Fat /Cholesterol FOLLOW UP/APPOINTMENTS Follow-up Plan Follow-up with primary care physician in 1 week SUSHANT CARL NP Apr 08, 2019 11:41
[2019-04-08] MEDS ORDERED: LOSA25TA2 PO (11:46)
[2019-04-08] MEDS ORDERED: MONT10TA21 PO (11:46)
[2019-04-08] MEDS ORDERED: DOXY100T2 PO (11:46)
[2019-04-08] MEDS ORDERED: PRED10TA PO (11:46)
--- NOTE | 2019-04-08 11:51 | DS ---
Date/Time of Note Date/Time of Note DATE: 04/08/19 TIME: 11:49 Discharge Summary Admission/Discharge Info Admit Date/Time Apr 07, 2019 at 13:08 Discharge Date/Time Discharge Diagnosis COPD exacerbation. Stable MRSA UTI Parkinson's disease Obesity with BMI 33.3 Probable sleep apnea Prediabetes Patient Condition: Stable Hospital Course 58 yo male with Parkinson dz, neurogenic bladder with suprapubic catheter placed 3 years ago, recurrent urinary tract infection, COPD presents with worsening shortness of breath.. Patient was treated for COPD exacerbation with [id number] bronchodilators, systemic steroids. VQ scan with unlikely PE. Also ablated off urinary discomfort and his urine culture grew MRSA sensitive to doxycycline. Patient with no evidence of sepsis. No fevers or leukocytosis. At this time, we will discharge patient on oral doxycycline to complete a course. Patient was continued on home medication for underlying Parkinson's disorders. Patient was counseled on outpatient pulmonary follow-up for obtaining his sleep study result. He was counseled on weight reduction. Patient was also noted with prediabetes for which diet changes advised. Approximately 60 m spent on coordinating the discharge on this patient. Patient was seen in collaboration with Dr. Berrios. Home Meds Active Scripts Montelukast Sodium* (Singulair*) 10 Mg Tablet, 10 MG PO QHS, #30 TAB Prov:SUSHANT CARL V. [employer]OPPING INSPECTOR 04/08/19 Prednisone* (Prednisone*) 10 Mg Tab, 10 MG PO DAILY, #4 TAB Take 2 pills on day 1 and 2 Then take 1 pill on day 3 and 4, then stop Prov:SUSHANT CARL NP 04/08/19 Losartan Potassium* (Cozaar*) 25 Mg Tablet, 25 MG PO DAILY, #30 TAB Prov:CARLSUSHANT V. SHOPPING INSPECTOR 04/08/19 Doxycycline* (Vibramycin*) 100 Mg Tab, 100 MG PO BID for 10 Days, #20 TAB Prov:SUSHANT CARL V. [employer]PING INSPECTOR 04/08/19 Carbidopa/Levodopa (Carbidopa-Levodopa 25-100 Tab) 1 Each Tablet, 2 TAB PO 0900,1200,1700 for 30 Days, TAB Prov:BLAIR MCGRATH [employer]PING INSPECTOR 08/13/18 Albuterol Sulfate* (Proair HFA*) 8.5 Gm Hfa.aer.ad, 2 PUFF INH Q6 for sob, #1 INHALER Prov:BLAIR MCGRATH [employer]PING INSPECTOR 08/13/18 Tiotropium [place]* (Spiriva*) 18 Mcg Cap.w.dev, 1 CAP INHALATION DAILY, #30 CAP Prov:BLAIR MCGRATH [employer]PING INSPECTOR 08/13/18 Mupirocin* (Bactroban*) 2% -22 Gram Oint...g., 1 APPLIC TOP BID for 14 Days, #1 UNIT Prov:BLAIR MCGRATH [employer]PING INSPECTOR 08/13/18 Reported Medications Primidone* (Mysoline*) 250 Mg Tablet, 250 MG PO BID, TAB 08/09/18 Rivaroxaban* (Xarelto*) 15 Mg Tablet, 15 MG PO WITH BREAKFAST DINNE, TAB 08/09/18 Pantoprazole* (Pantoprazole*) 40 Mg Tablet.dr, 40 MG PO AC BREAKFAST, TAB 08/09/18 Follow-up Plan Follow-up with primary care physician in 1 week Primary Care Provider Guadalupe Gonzalez ([facility]) Pending Labs Laboratory Tests Test 04/08/19 05:39 White Blood Count 10.4 10^3/ul (4.8-10.8) Red Blood Count 4.75 10^6/ul (4.70-6.10) Hemoglobin 14.4 g/dl (14.0-18.0) Hematocrit 42.8 % (42.0-52.0) Mean Corpuscular Volume 90.1 fl (82.0-101.0) Mean Corpuscular Hemoglobin 30.3 pg (29.0-33.0) Mean Corpuscular Hemoglobin Concent 33.6 g/dl (32.0-37.0) Red Cell Distribution Width 13.7 % (11.5-14.5) Platelet Count 294 10^3/UL (140-415) Mean Platelet Volume 10.4 fl (7.4-10.4) Immature Granulocytes % 0.600 % (0.001-0.429) Neutrophils % 77.7 % (39.0-77.0) Lymphocytes % 15.9 % (15.0-51.0) Monocytes % 5.2 % (0.0-11.0) Eosinophils % 0.4 % (0.0-7.0) Basophils % 0.2 % (0.0-2.0) Nucleated Red Blood Cells % 0.0 /100WBC (0.0-0.0) Immature Granulocytes # 0.060 10^3/ul (0.0-0.031) Neutrophils # 8.1 10^3/ul (1.6-7.5) Lymphocytes # 1.7 10^3/ul (0.8-2.9) Monocytes # 0.5 10^3/ul (0.3-0.9) Eosinophils # 0.0 10^3/ul (0.0-0.5) Basophils # 0.0 10^3/ul (0.0-0.1) Nucleated Red Blood Cells # 0.0 10^3/ul (0.0-0.0) Sodium Level 141 mmol/L (135-144) Potassium Level 4.6 mmol/L (3.5-5.1) Chloride Level 107 mmol/L (97-110) Carbon Dioxide Level 28 mmol/L (21-31) Anion Gap 6 (5-13) Blood Urea Nitrogen 19 mg/dl (7-20) Creatinine 0.89 mg/dl (0.61-1.24) Est Glomerular Filtrat Rate mL/min > 60 mL/min (>60) Glucose Level 145 mg/dl (70-220) Calcium Level 8.8 mg/dl (8.4-10.2) SUSHANT CARL NP Apr 08, 2019 11:51
[2019-04-08 14:18] VITALS: BP 94/51; PULSE 85; RESP 16
[2019-04-08] MEDS ORDERED: METHYLPREDNISOLONE 4 MG TAB PO SCH (21:00)
== END 2019-04-08 15:00 | disposition home or self-care (01) | DRG 190 ==
LOC: E/R 19:11 → TEL 23:42 → OBSVTOIN 04-07 13:08 → PP2 04-07 15:49
PROVIDERS: ADMIT Hospitalist; ATTEND Internal Medicine
DX: J44.1 Chronic obstructive pulmonary disease with (acute) exacerbation (principal); J96.01 Acute respiratory failure with hypoxia; G20 Parkinson's disease; G47.30 Sleep apnea, unspecified; N31.9 Neuromuscular dysfunction of bladder, unspecified; Z79.02 Long term (current) use of antithrombotics/antiplatelets; Z86.718 Personal history of other venous thrombosis and embolism
CPT/HCPCS: 71045; 78582; 80048; 80053; 80061; 81001; 83036; 83735; 83880; 84100; 84443; 84484; 85025; 85610; 87086; 93306; 94640; 94644; 94664; 96374; 97162; G0378; A9540; J1956; J2405; J2930; J3475; J7509

== ENCOUNTER 2019-06-17 12:18 | Emergency (ER) | payer OTHER ==
[~2019-06-17] VITALS: Ht 170.2 cm; Wt 105.0 kg
[~2019-06-17 12:18] MED LIST changes: +AMAN100C96 PO; +CARB1TAB2 PO; +CEPH-443 PO; +CIPR500T4 PO; +DOXY100T20 PO; +HYDR-3980 PO; +LOSA25TA12 PO; +LOSA25TA2 PO; +MONT10TA21 PO; +MONT10TA24 PO; -MUPI22OI2 TOP; +NALO4SPR NS; +NITR100C6 PO; +ONDA4TAB14 PO; +PRED10TA PO; +RIVA20TA5 PO; +SERT-165 PO; +TOLT4CAP13 PO
[2019-06-17 12:22] VITALS: Ht 170.2 cm; Wt 105.0 kg
[2019-06-17] MEDS ORDERED: SOD CHLORIDE 0.9% 1,000 ML IV STA (12:48)
[2019-06-17] MEDS ORDERED: HYDROmorphONE 1 MG/ML SYG IV STA (12:48)
[2019-06-17] MEDS ORDERED: CEFTRIAXONE 1 GM/50 ML (PMX) 50 ML IVPB STA (12:48)
[2019-06-17] MEDS ORDERED: ONDANSETRON 4 MG INJ IV STA (12:48)
[2019-06-17] MEDS ORDERED: KETOROLAC 30 MG INJ IV STA (14:48)
[2019-06-17] MEDS ORDERED: HYDROmorphONE 2 MG/ML SYG IV STA (15:33)
[2019-06-17 17:35] VITALS: BP 112/63; PULSE 77; RESP 18
== END 2019-06-17 17:43 | disposition home or self-care (01) ==
LOC: E/R 12:18
DX: N30.00 Acute cystitis without hematuria (principal); I10 Essential (primary) hypertension; J44.9 Chronic obstructive pulmonary disease, unspecified; G20 Parkinson's disease
CPT/HCPCS: 36415; 74176; 80053; 81001; 83605; 83690; 84484; 85025; 85610; 85730; 87040; 87086; 93005; 96365; 96366; 96375; 96376; J0696; J1170; J1885; J2405; J7030; Z7502; 81003

== ENCOUNTER 2019-08-29 15:13 | Emergency (ER) | payer OTHER ==
[~2019-08-29] VITALS: Ht 175.3 cm; Wt 104.5 kg
[~2019-08-29 15:13] MED LIST changes: -ALBU8.5H8 INH; -CARB1TAB34 PO; -CEPH-443 PO; -DOXY100T2 PO; -DOXY100T20 PO; -HYDR-3980 PO; -LOSA25TA2 PO; -MONT10TA21 PO; -MONT10TA24 PO; -NITR100C6 PO; -PRED10TA PO; -RIVA15TA PO; -TIOT18CA INHALATION
[2019-08-29 15:21] VITALS: Ht 175.3 cm; Wt 104.5 kg
== END 2019-08-29 16:30 | disposition home or self-care (01) ==
LOC: E/R 15:13
DX: T85.9XXA Unspecified complication of internal prosthetic device, implant and graft, initial encounter (principal); I10 Essential (primary) hypertension; J44.9 Chronic obstructive pulmonary disease, unspecified; G20 Parkinson's disease; Y73.2 Prosthetic and other implants, materials and accessory gastroenterology and urology devices associated with adverse incidents
CPT/HCPCS: 99282